=== PATIENT | male | born 1990 | race Caucasian/White ===

== ENCOUNTER 2019-01-12 09:41 | Emergency (ER) | payer MEDICAID, SELFPAY ==
[2019-01-12 09:43] VITALS: BP 165/97; PULSE 98; RESP 19; TEMP 36.6; O2SAT 98; BMI 33.1
--- NOTE | 2019-01-12 09:55 | EKG12_ITS ---
Test Reason : CP Blood Pressure : / mmHG Vent. Rate : 088 BPM Atrial Rate : 088 BPM P-R Int : 160 ms QRS Dur : 108 ms QT Int : 370 ms P-R-T Axes : 039 025 040 degrees QTc Int : 447 ms Normal sinus rhythm Normal ECG Confirmed by REID PRAKASH MD ([id number]), photographic editor ANAHY DOSHI ([id number]) on 01/17/2019 2:32:24 PM Referred By: BARB
[2019-01-12 10:10] LABS: Absolute Lymphocyte Count 2.03 X10^3/uL (0.83-4.51); Absolute Neutrophil Count 4.6 X10^3/uL (2.0-7.7); Basophil# 0.04 X10^3/uL; Basophil% 0.5 % (0-1); Eosinophil# 0.17 X10^3/uL; Eosinophils% 2.2 % (0-5); Hemoglobin 15.3 g/dL (13.0-16.5); Lymphocyte # 2.03 X10^3/ul (4.0); Lymphocyte % 26.4 % (19-41); Mean Corp Hgb Conc 33.3 g/dL (32-36); Mean Corpuscular Hgb 29.1 pg (27.0-32.0); Mean Corpuscular Volume 87.6 fL (80-94); Mean Platelet Vol. 9.1 fl (6.2-12.0); Monocyte# 0.85 X10^3/uL; Monocyte% 11.1 % (0-10); NRBC Flagged by Analyzer 0 % (0-5); Neutrophil # 4.57 X10^3/uL (2.7-7.7); Neutrophil % 59.5 % (47-70); Platelet Count 174 K/mm3 (150-450); RBC Distribution Width CV 12.4 % (11.6-14.6); RBC Distribution Width SD 39.9 fl (35.1-43.9); Red Blood Count 5.25 M/mm3 (4.6-6.2); White Blood Count 7.7 K/mm3 (4.4-11.0)
--- NOTE | 2019-01-12 10:21 | RAD_ITS ---
STUDY: X-RAY CHEST REASON FOR EXAM: Male, 28 years old. Chest pain. TECHNIQUE: PA and lateral views of the chest. COMPARISON: None. FINDINGS: EKG electrodes are seen. The lungs are clear and expanded. Scattered calcified granulomas. There is no demonstrated pleural abnormality. Normal size heart. Normal mediastinum and palak. Normal visualized pulmonary arteries. Normal visualized aortic arch and descending thoracic aorta. Normal visualized thoracic spine. Normal visualized ribs, clavicles, and shoulders. There is no demonstrated abnormality of the visualized soft tissue structures of the upper abdomen. RAD/Chest PA and Lateral IMPRESSION: Normal x-ray examination of the chest. Electronically Signed: Nicholas Tolbert, at 11:15 EST , Service support ,
[2019-01-12 10:37] LABS: Anion Gap 6 (5-15); BUN 16 mg/dL (7-18); BUN/Creat Ratio 15.2 RATIO (10-20); Calcium,Total 9.7 mg/dL (8.5-10.1); Chloride 101 mmol/L (98-107); Creatinine, Serum 1.05 mg/dL (0.70-1.30); EST Glomerular Filtration Rate 88 mL/min (>60); Est Glom Filt Rate - Afr Amer 106 mL/min (>60); Estimated Creatinine Clearance 129.64 ml/min; Glucose 64 mg/dL (74-106); Potassium 4.8 mmol/L (3.5-5.1); Sodium Level 137 mmol/L (136-145)
[2019-01-12 11:09] VITALS: BP 145/81; PULSE 72; RESP 16
--- NOTE | 2019-01-12 11:34 | ED.VISSUMM ---
- ER Visit Summary Date of Service: 01/12/19 Chief Complaint: Chest pain History of Present Illness: The patient is a 28 M who states that yesterday after work he notes his chest was a little sore. He attributed to his activity at work. Today went to work for the past hour and a half has had a very intermittent sharp pain. Initially tells me he cannot find it makes it better or worse such as breathing or touch but later tells me that he bends his head backwards can make it occur. Physical Examination: Afebrile vital signs stable Gen: Well-nourished well-developed Head: Normocephalic atraumatic Eyes: Perrl EOMI ENT: TMs clear no rhinorrhea moist mucous membranes Neck: Supple no lymphadenopathy no JVD nontender CVS: Regular rate rhythm no murmurs normal S1-S2 Respiratory: No distress clear to auscultation bilaterally chest nontender Abdomen: Soft nontender nondistended normal bowel sounds no masses Back: Nontender Extremity: Nontender no edema Skin: Normal color no rash Neuro: alert orientated ?3 CN II-XII intact normal strength sensation reflexes gait cerebellar Psych: Normal affect normal mood Test Results: Chest x-ray negative. EKG sinus at a rate of 88 basic labs showed a glucose of 64 and a negative troponin. Emergency Department Course and Treatment: I believe this to be musculoskeletal in nature. He will be treated conservatively return if worsening or concerns Impression: 1. Chest wall pain This note was generated with [employer] dictation software. It may contain incorrect words, spelling, and punctuation that were not noted in review of the chart prior to signing ED Disposition - Plan for ED Patient: Disposition: Home or Assisted Living Instructions: CHEST PAIN, NonCardiac Referrals: Lidia Sparrow MD [STAFF PHYSICIAN] - 3-5 Days if not improving
== END 2019-01-12 11:51 | disposition home or self-care (01) ==
PROVIDERS: Emergency Provider Emergency Medicine
DX: R07.89 Other chest pain (principal); R61 Generalized hyperhidrosis; R00.2 Palpitations; R05 Cough; F17.290 Nicotine dependence, other tobacco product, uncomplicated
CPT/HCPCS: 71046; 80048; 84484; 85025; 93005; 99283